=== PATIENT | male | born 1995 | race Caucasian/White ===

== ENCOUNTER 2017-01-06 10:49 | Emergency (ER) | payer SELFPAY ==
[2017-01-06 11:22] VITALS: BP 119/70
--- NOTE | 2017-01-06 11:33 | UC ---
Minor Trauma HPI - HPI Summary HPI Summary: LEFT CHIN INJURY. YESTERDAY WHILE WORKING AT [employer] SLIPPED ON WATER. BUMP HIS CHIN AND CHIPPED A BACK LOWER MOLAR. DENIES LOC. MILD BRUISING ON CHIN. SKIN IS INTACT.Denies LOC or bleeding after fall. Did have headache that has since resolved, had photophobia and jaw pain yesterday which has since resolved. He finished his shift, fell about 9am yesterday and worked until 2 pm . [ End ] - History of Current Complaint Chief Complaint: UCHeadInjury Stated Complaint: S/P FALL CHIN INJURY WC Time Seen by Provider: 01/06/17 11:16 Hx Obtained From: Patient Onset/Duration: Sudden Onset Aggravating Factor(s): Nothing Alleviating Factor(s): Nothing Associated Signs And Symptoms: Positive: Ecchymosis, Swelling. Negative: Loss Of Consciousness Related History: Positive: Occupational Injury - Allergies/Home Medications Allergies/Adverse Reactions: Allergies Allergy/AdvReac Type Severity Reaction Status Date / Time SHRIMP Allergy Unknown RASH , Uncoded 01/06/17 11:15 ITCHY THROAT. Home Medications: Home Medications NK [No Home Medications Reported] 01/06/17 [History Confirmed 01/06/17] PMH/Surg Hx/FS Hx/Imm Hx Previously Healthy: Yes - Surgical History Surgical History: None - Social History Occupation: Employed Full-time Lives: With Family Alcohol Use: None Substance Use Type: None Smoking Status (MU): Never Smoked Tobacco - Immunization History Vaccination Up to Date: Yes Review of Systems Skin: Bruising ENT: Dental Pain - yesterday present but today resolved Neurological: Headache - yesterday but resolved today All Other Systems Reviewed And Are Negative: Yes Physical Exam Triage Information Reviewed: Yes Appearance: Well-Appearing, No Pain Distress, Well-Nourished Vital Signs: Initial Vital Signs Temp 99.1 F 01/06/17 11:16 Pulse 59 01/06/17 11:16 Resp 16 01/06/17 11:16 BP 119/70 01/06/17 11:16 Pulse Ox 99 01/06/17 11:16 Vital Signs Reviewed: Yes Eye Exam: Normal ENT Exam: Normal ENT: Positive: Normal ENT inspection Dental Exam: Normal Dental: Positive: Other: - mild tenderness to palpation left mandible with ecchymosis that is mild. no break in skin. no deformity.. Negative: Percussion Tenderness @, Gross Decay/Caries @, Dental Fracture @, Abscess @, Cellulitis @, Cervical Lymphadenopathy, Bleeding Neck exam: Normal Neck: Positive: 1 Respiratory Exam: Normal Cardiovascular Exam: Normal Abdominal Exam: Normal Musculoskeletal Exam: Normal Neurological Exam: Normal Neurological: Positive: Alert, Muscle Tone Normal Psychological Exam: Normal Psychological: Positive: Normal Response To Family Skin Exam: Normal Minor Trauma Course/Dx - Course Course Of Treatment: Pt Sx all resolved today . No concussion Sx today but they may return with exertion so he will monitor and go to concussion clinic if any concerns. no obvious mandible concerns, he was able to eat breakfast cereal today without difficulty and finished his shift . no concern for red flags to perform CT today but if any concerns he will return here. - Differential Dx/Diagnosis Differential Diagnosis/HQI/PQRI: Abrasion(s), Contusion(s), Fracture, Hematoma(s ) Provider Diagnoses: Contusion right lower jaw / mild concussion Discharge - Discharge Plan Condition: Good Disposition: HOME Patient Education Materials: Concussion (ED), Facial Contusion (ED) Referrals: No Primary Care Phys,NOPCP [Primary Care Provider] - 3 Days Additional Instructions: If your symptoms persist or worsen please call to make an appt with the concussion clinic at [facility] Dental: 1 - small superficial area of tooth chipped, mild tenderness to palpation
== END 2017-01-06 11:46 | disposition home or self-care (01) ==
LOC: UCCORT 10:49
DX: S00.83XA Contusion of other part of head, initial encounter (principal); S06.0X0A Concussion without loss of consciousness, initial encounter; W01.10XA Fall on same level from slipping, tripping and stumbling with subsequent striking against unspecified object, initial encounter; Y93.89 Activity, other specified; Y92.89 Other specified places as the place of occurrence of the external cause; Y99.0 Civilian activity done for income or pay
CPT/HCPCS: 99211; G0463